=== PATIENT | female | born 1965 | race Caucasian/White ===

== ENCOUNTER → 2017-03-23 | Outpatient (CLI) | payer OTHER ==
[~2017-03-23] MED LIST: DAILY VALUE1 EACH; FLEXERIL10 MG PO; FLONASE16 GM NS; GILTUSS TR TAB1 EACH PO; OMEPRAZOLE20 M1; VOLTAREM 50MG PO; ZYRTEC10 MG PO
== END | disposition home or self-care (01) ==
LOC: NUCLEAR 07:29
DX: I73.9 Peripheral vascular disease, unspecified (principal)

== ENCOUNTER 2017-06-11 08:11 | Outpatient (CLI) | payer OTHER | END 2017-06-11 08:20 | disposition home or self-care (01) | LOC: LAB 08:11 | DX: N39.0 Urinary tract infection, site not specified (principal); N39.9 Disorder of urinary system, unspecified ==

== ENCOUNTER 2018-03-17 07:48 | Outpatient (CLI) | payer OTHER | END 2018-03-17 11:39 | disposition home or self-care (01) | LOC: LAB 07:48 | DX: E03.8 Other specified hypothyroidism (principal); E78.3 Hyperchylomicronemia; N95.0 Postmenopausal bleeding ==

== ENCOUNTER 2018-03-24 08:47 | Outpatient (CLI) | payer OTHER | END 2018-03-24 08:50 | disposition home or self-care (01) | LOC: MAMO-SONO 08:47 | DX: N60.11 Diffuse cystic mastopathy of right breast (principal); N60.12 Diffuse cystic mastopathy of left breast; Z12.31 Encounter for screening mammogram for malignant neoplasm of breast ==

== ENCOUNTER → 2018-09-14 07:02 | Outpatient (CLI) | payer OTHER | END | disposition home or self-care (01) | LOC: LAB 07:02 | DX: E78.89 Other lipoprotein metabolism disorders (principal); I87.2 Venous insufficiency (chronic) (peripheral); I83.813 Varicose veins of bilateral lower extremities with pain ==

== ENCOUNTER 2019-05-09 10:27 | Outpatient (CLI) | payer OTHER | END 2019-05-09 10:30 | disposition home or self-care (01) | LOC: RAD 10:27 | DX: M54.2 Cervicalgia (principal) ==

== ENCOUNTER → 2019-10-22 | Outpatient (CLI) | payer OTHER | END | disposition home or self-care (01) | LOC: MAMO-SONO 07:37 | PROVIDERS: ATTEND Specialist | DX: Z12.31 Encounter for screening mammogram for malignant neoplasm of breast (principal); N60.11 Diffuse cystic mastopathy of right breast; N60.12 Diffuse cystic mastopathy of left breast ==

== ENCOUNTER → 2021-10-29 | Emergency (ER) | payer OTHER ==
[~2021-10-29] VITALS: Ht 182.9 cm; Wt 101.6 kg
== END | disposition home or self-care (01) ==
LOC: ER 06:55
DX: R07.89 Other chest pain (principal); I10 Essential (primary) hypertension; Z20.822 Contact with and (suspected) exposure to COVID-19

== ENCOUNTER 2021-12-18 06:58 | Outpatient (CLI) | payer OTHER | END 2021-12-18 06:59 | disposition home or self-care (01) | LOC: LAB 06:58 | DX: R07.2 Precordial pain (principal); E78.5 Hyperlipidemia, unspecified; Z13.6 Encounter for screening for cardiovascular disorders ==

== ENCOUNTER 2022-01-01 10:48 | Outpatient (CLI) | payer OTHER | END 2022-01-01 10:50 | disposition home or self-care (01) | LOC: PPH VACUNA 10:48 | PROVIDERS: ATTEND Emergency Medicine Pediatric Emergency Medicine | DX: Z23 Encounter for immunization (principal) ==

== ENCOUNTER 2022-07-13 07:23 | Outpatient (CLI) | payer OTHER | END 2022-07-13 07:27 | disposition home or self-care (01) | LOC: LAB 07:23 | PROVIDERS: ATTEND General Practice | DX: E78.5 Hyperlipidemia, unspecified (principal); E55.9 Vitamin D deficiency, unspecified; N39.0 Urinary tract infection, site not specified; R10.9 Unspecified abdominal pain; R42 Dizziness and giddiness; Z00.00 Encounter for general adult medical examination without abnormal findings ==

== ENCOUNTER 2022-09-27 08:15 | Outpatient (CLI) | payer OTHER | END 2022-09-27 08:17 | disposition home or self-care (01) | LOC: RAD 08:15 | PROVIDERS: ATTEND Orthopaedic Surgery | DX: M65.812 Other synovitis and tenosynovitis, left shoulder (principal); M25.462 Effusion, left knee ==

== ENCOUNTER 2023-04-12 10:21 | Outpatient (CLI) | payer OTHER ==
[2023-04-13] MEDS ORDERED: TUSNEL LIQUID178 ML PO (15:40)
[2023-04-13] MEDS ORDERED: ZITHROMAX500 MG PO (15:40)
[2023-04-13] MEDS ORDERED: XOPENEX CO1.25 MG/0. IH (15:40)
== END 2023-04-12 10:24 | disposition home or self-care (01) ==
LOC: SONOGRAMA 10:21 → RAD 10:21 → SONOGRAMA 10:24
PROVIDERS: ATTEND Internal Medicine
DX: I87.2 Venous insufficiency (chronic) (peripheral) (principal); I83.813 Varicose veins of bilateral lower extremities with pain; E78.9 Disorder of lipoprotein metabolism, unspecified; K21.9 Gastro-esophageal reflux disease without esophagitis; M23.52 Chronic instability of knee, left knee; M23.92 Unspecified internal derangement of left knee

== ENCOUNTER 2023-04-13 12:52 | Emergency (ER) | payer OTHER ==
[~2023-04-13] VITALS: Ht 177.8 cm; Wt 72.6 kg
[2023-04-13] MEDS ORDERED: XOPENEX CO1.25 MG/0. IH (15:40)
[2023-04-13] MEDS ORDERED: TUSNEL LIQUID178 ML PO (15:40)
[2023-04-13] MEDS ORDERED: ZITHROMAX500 MG PO (15:40)
== END 2023-04-13 16:01 | disposition home or self-care (01) ==
LOC: ER 12:52
DX: J06.9 Acute upper respiratory infection, unspecified (principal)

== ENCOUNTER → 2023-05-05 | Outpatient (CLI) | payer OTHER ==
[~2023-05-05] MED LIST changes: +TUSNEL LIQUID178 ML PO; +XOPENEX CO1.25 MG/0. IH; +ZITHROMAX500 MG PO
== END | disposition home or self-care (01) ==
LOC: MRI 13:39
PROVIDERS: ATTEND Orthopaedic Surgery
DX: M25.562 Pain in left knee (principal); M23.92 Unspecified internal derangement of left knee
CPT/HCPCS: 73721

== ENCOUNTER 2023-05-13 12:07 | Outpatient (CLI) | payer OTHER | END 2023-05-13 12:09 | disposition home or self-care (01) | LOC: NUCLEAR 12:07 | PROVIDERS: ATTEND Orthopaedic Surgery | DX: M81.0 Age-related osteoporosis without current pathological fracture (principal) ==

== ENCOUNTER 2023-07-04 07:38 | Outpatient (CLI) | payer OTHER ==
[2023-07-04 08:59] LABS: PH,URINE 5.5 (5.0-8.0); URINE APPEARANCE Clear; URINE BILIRRUBIN Negative (NEGATIVE); URINE BLOOD Negative; URINE COLOR Yellow; URINE GLUCOSE Negative (NEGATIVE); URINE LEUKOCYTE Trace; URINE NITRATE Negative; URINE PROTEIN Negative (NEGATIVE); URINE UROBILINOGEN 0.2 E.U./dl
[2023-07-04 09:00] LABS: HEMATOCRIT 34.7 % (36.0-45.00); HEMOGLOBIN 11.7 g/dL (12.0-15.00); MEAN CELL VOLUME 87.3 fL (80.00-100.00); MEAN CORPUSCULAR HEMOGLOBIN 29.5 pg (27.00-32.0); MEAN CORPUSCULAR HGB CONC 33.8 g/dl (32.0-36.0); PLATELET COUNT 225 K/uL (150-450); RED BLOOD COUNT 3.98 M/uL (4.00-6.00)
[2023-07-04 09:01] LABS: URINE BACTERIA 108.3 uL (0.0-1933); URINE EPITHELIAL CELLS 10.1 uL (0.0-38.8); URINE WBC 19.6 uL (0.0-23.2)
[2023-07-04 10:14] LABS: ALBUMIN 3.5 gm/dL (3.4-5.0); BILIRUBIN TOTAL 0.38 mg/dL (0.3-1.2); CHOL HDL RATIO 3.3 (0-5.0); CREATININE SERUM 0.74 mg/dL (0.55-1.02); GFR 80.89; GLOBULINA 3.6 G/DL (2.4-3.5); POTASSIUM 4.64 mEq/L (3.5-5.1); T4 TOTAL 8.08 UG/DL (4.8-13.9); TOTAL PROTEIN 7.1 gm/dL (6.4-8.2); TSH 0.656 uIU/mL (0.358-3.74)
[2023-07-04 10:15] LABS: ob NEGATIVE (NEGATIVE)
== END 2023-07-04 14:30 | disposition home or self-care (01) ==
LOC: LAB 07:38
PROVIDERS: ATTEND Internal Medicine
DX: I87.2 Venous insufficiency (chronic) (peripheral) (principal); I83.813 Varicose veins of bilateral lower extremities with pain; E78.9 Disorder of lipoprotein metabolism, unspecified; K21.9 Gastro-esophageal reflux disease without esophagitis; M23.52 Chronic instability of knee, left knee; M23.92 Unspecified internal derangement of left knee

== ENCOUNTER → 2024-01-19 07:27 | Outpatient (CLI) | payer OTHER ==
[2024-01-19 08:36] LABS: URINE APPEARANCE Clear; URINE BILIRRUBIN Negative (NEGATIVE); URINE BLOOD Negative; URINE COLOR Yellow; URINE GLUCOSE Negative (NEGATIVE); URINE KETONE Negative (NEGATIVE); URINE LEUKOCYTE Small; URINE NITRATE Negative; URINE PROTEIN Negative (NEGATIVE); URINE UROBILINOGEN 0.2 E.U./dl
[2024-01-19 08:37] LABS: HEMATOCRIT 33.4 % (36.0-45.00); HEMOGLOBIN 11.5 g/dL (12.0-15.00); MEAN CELL VOLUME 87.3 fL (80.00-100.00); MEAN CORPUSCULAR HEMOGLOBIN 30.1 pg (27.00-32.0); MEAN CORPUSCULAR HGB CONC 34.5 g/dl (32.0-36.0); PLATELET COUNT 230 K/uL (150-450); RED BLOOD COUNT 3.83 M/uL (4.00-6.00); RED CELL DISTRIBUTION WIDTH 13.9 % (11.5-14.5)
[2024-01-19 08:41] LABS: URINE BACTERIA 36.5 uL (0.0-1933); URINE EPITHELIAL CELLS 5.6 uL (0.0-38.8); URINE RBC 1.8 uL (0.0-20.8)
[2024-01-19 09:22] LABS: ALBUMIN 3.6 gm/dL (3.4-5.0); BILIRUBIN TOTAL 0.31 mg/dL (0.3-1.2); CALCIUM 9.1 mg/dL (8.5-10.1); CHOL HDL RATIO 3.2 (0-5.0); CREATININE SERUM 0.94 mg/dL (0.55-1.02); GFR 61.16; GLOBULINA 3.7 G/DL (2.4-3.5); POTASSIUM 4.02 mEq/L (3.5-5.1); T4 TOTAL 8.62 UG/DL (4.8-13.9); TOTAL PROTEIN 7.3 gm/dL (6.4-8.2); TSH 1.07 uIU/mL (0.358-3.74)
[2024-01-19 10:16] LABS: T3 TOTAL 1.03 ng/ml (0.846-2.02); VITAMIN D3 25 HYDROXY 49.77 ng/ml (30-120)
== END | disposition home or self-care (01) ==
LOC: LAB 07:27
PROVIDERS: ATTEND Internal Medicine
DX: I87.2 Venous insufficiency (chronic) (peripheral) (principal); I83.813 Varicose veins of bilateral lower extremities with pain; E78.9 Disorder of lipoprotein metabolism, unspecified; K21.9 Gastro-esophageal reflux disease without esophagitis; M23.52 Chronic instability of knee, left knee; M23.92 Unspecified internal derangement of left knee; E03.9 Hypothyroidism, unspecified

== ENCOUNTER 2024-02-13 11:00 | Outpatient (CLI) | payer OTHER | END 2024-02-13 11:10 | disposition home or self-care (01) | LOC: PPH VACUNA 11:00 | PROVIDERS: ATTEND Emergency Medicine Pediatric Emergency Medicine | DX: Z23 Encounter for immunization (principal) ==

== ENCOUNTER → 2024-04-27 08:13 | Outpatient (CLI) | payer OTHER ==
[2024-04-27 08:51] LABS: URINE APPEARANCE Clear; URINE BILIRRUBIN Negative (NEGATIVE); URINE BLOOD Negative; URINE COLOR Yellow; URINE GLUCOSE Negative (NEGATIVE); URINE KETONE Negative (NEGATIVE); URINE LEUKOCYTE Trace; URINE NITRATE Negative; URINE PROTEIN Negative (NEGATIVE); URINE UROBILINOGEN 0.2 E.U./dl
[2024-04-27 08:52] LABS: HEMATOCRIT 34.3 % (36.0-45.00); HEMOGLOBIN 11.8 g/dL (12.0-15.00); MEAN CORPUSCULAR HEMOGLOBIN 29.8 pg (27.00-32.0); MEAN CORPUSCULAR HGB CONC 34.3 g/dl (32.0-36.0); PLATELET COUNT 222 K/uL (150-450); RED BLOOD COUNT 3.94 M/uL (4.00-6.00)
[2024-04-27 09:03] LABS: URINE BACTERIA 51.3 uL (0.0-1933); URINE EPITHELIAL CELLS 4.4 uL (0.0-38.8); URINE WBC 11.5 uL (0.0-23.2)
[2024-04-27 09:26] LABS: URINE RBC 0.7 uL (0.0-20.8)
[2024-04-27 10:19] LABS: ALBUMIN 3.5 gm/dL (3.4-5.0); BILIRUBIN TOTAL 0.49 mg/dL (0.3-1.2); CALCIUM 9.5 mg/dL (8.5-10.1); CHOL HDL RATIO 2.8 (0-5.0); CREATININE SERUM 0.76 mg/dL (0.55-1.02); GFR 78.16; GLOBULINA 3.7 G/DL (2.4-3.5); POTASSIUM 4.46 mEq/L (3.5-5.1); TOTAL PROTEIN 7.2 gm/dL (6.4-8.2)
== END | disposition home or self-care (01) ==
LOC: LAB 08:13
PROVIDERS: ATTEND Internal Medicine
DX: I87.2 Venous insufficiency (chronic) (peripheral) (principal); I83.813 Varicose veins of bilateral lower extremities with pain; E78.9 Disorder of lipoprotein metabolism, unspecified; K21.9 Gastro-esophageal reflux disease without esophagitis; M23.52 Chronic instability of knee, left knee; M23.92 Unspecified internal derangement of left knee; E03.9 Hypothyroidism, unspecified

== ENCOUNTER 2024-08-27 14:20 | Outpatient (CLI) | payer OTHER ==
[2024-08-29 05:07] LABS: HEPATITIS A ANTIBODY IGG Positive (Negative); HEPATITIS B SURFACE ANTIBODY Non Reactive (.); HEPATITIS C VIRUS ANTIBODY Non Reactive (Non Reactive)
== END 2024-08-27 14:36 | disposition home or self-care (01) ==
LOC: LAB 14:20
DX: A64 Unspecified sexually transmitted disease (principal); B19.9 Unspecified viral hepatitis without hepatic coma

== ENCOUNTER 2024-09-20 12:56 | Outpatient (CLI) | payer OTHER ==
[2024-09-20 13:53] LABS: COVID-19 AG NEGATIVE (NEGATIVE); INFLUENZA A AG NEGATIVE (NEGATIVE); INFLUENZA B AG NEGATIVE (NEGATIVE)
== END 2024-09-20 12:59 | disposition home or self-care (01) ==
LOC: LAB 12:56
DX: J11.1 Influenza due to unidentified influenza virus with other respiratory manifestations (principal); Z20.828 Contact with and (suspected) exposure to other viral communicable diseases

== ENCOUNTER 2025-01-31 13:35 | Outpatient (CLI) | payer OTHER | END 2025-01-31 13:45 | disposition home or self-care (01) | LOC: PPH VACUNA 13:35 | PROVIDERS: ATTEND Emergency Medicine Pediatric Emergency Medicine | DX: Z23 Encounter for immunization (principal) ==

== ENCOUNTER 2025-02-13 13:56 | Outpatient (CLI) | payer OTHER ==
[2025-02-13 15:01] LABS: COVID-19 AG NEGATIVE (NEGATIVE)
== END 2025-02-13 14:01 | disposition home or self-care (01) ==
LOC: LAB 13:56
PROVIDERS: ATTEND Preventive Medicine Occupational Medicine
DX: J11.1 Influenza due to unidentified influenza virus with other respiratory manifestations (principal); Z20.828 Contact with and (suspected) exposure to other viral communicable diseases

== ENCOUNTER → 2025-02-25 07:33 | Outpatient (CLI) | payer OTHER ==
[2025-02-25 08:47] LABS: BASO % 0.7 % (0.1-1.2); EOS # 0.08 (0.04-0.54); EOS % 1.4 % (0.7-7.0); LYMPH # 1.02 (1.18-3.74); LYMPH % 18.0 % (19.3-53.1); MEAN PLATELET VOLUME 9.80 fl (9.4-12.4); MONO # 0.33 (0.24-0.82); MONO % 5.8 % (4.7-12.5); NEUT # 4.17 (1.56-6.13); NEUT % 73.7 % (34.0-71.1); RED CELL DISTRIBUTION WIDTH 13.5 % (11.6-14.4)
[2025-02-25 08:48] LABS: URINE APPEARANCE Clear; URINE BILIRRUBIN Negative (NEGATIVE); URINE BLOOD Negative; URINE COLOR Yellow; URINE GLUCOSE Negative (NEGATIVE); URINE KETONE Negative (NEGATIVE); URINE LEUKOCYTE Trace; URINE NITRATE Negative; URINE PROTEIN Negative (NEGATIVE); URINE UROBILINOGEN 0.2 E.U./dl
[2025-02-25 08:54] LABS: URINE BACTERIA 207.6 uL (0.0-1933); URINE EPITHELIAL CELLS 12.3 uL (0.0-38.8); URINE WBC 22.2 uL (0.0-23.2)
[2025-02-25 09:02] LABS: URINE CAST 0.00 uL (0.0-1.40); URINE RBC 1.7 uL (0.0-20.8)
[2025-02-25 09:54] LABS: ALT/SGPT 26.0 U/L (12-78); AST/SGOT 19.0 U/L (15-37); BILIRUBIN TOTAL 0.42 mg/dL (0.3-1.2); BUN CREA RATIO 16.0 (7.0-25.0); CHOL HDL RATIO 3.5 (0-5.0); CREATININE SERUM 0.86 mg/dL (0.55-1.02); GFR 67.54; GLOBULINA 3.9 G/DL (2.4-3.5); GLUCOSE FASTING 101.0 mg/dL (65-100); HDL 64.0 mg/dl (40-60); LDL 137.0 mg/dl (0-130); OSMOLALITY SERUM 287.0 MOSM/KG (275-295); T3 UPTAKE 37.0 % (30-39); T4 TOTAL 7.74 UG/DL (4.8-13.9); TSH 0.951 uIU/mL (0.358-3.74); VLDL 25.0 (0-39)
== END | disposition home or self-care (01) ==
LOC: LAB 07:33
PROVIDERS: ATTEND Internal Medicine
DX: I87.2 Venous insufficiency (chronic) (peripheral) (principal); I83.813 Varicose veins of bilateral lower extremities with pain; E78.9 Disorder of lipoprotein metabolism, unspecified; K21.9 Gastro-esophageal reflux disease without esophagitis; M23.52 Chronic instability of knee, left knee; M23.92 Unspecified internal derangement of left knee; E03.9 Hypothyroidism, unspecified

== ENCOUNTER 2025-03-19 06:00 | Day surgery (SDC) | payer OTHER ==
[2025-03-19] MEDS ORDERED: DIPHENHYDRAMINE HCL 50 MG/ML VIAL 1ML IV ONE (13:30)
[2025-03-19] MEDS ORDERED: fentaNYL CITRATE 50 MCG/ML AMPUL IV ONE (13:30)
[2025-03-19] MEDS ORDERED: MIDAZOLAM HCL 2 MG/2 ML VIAL IV ONE (13:30)
== END 2025-03-19 15:00 | disposition home or self-care (01) ==
LOC: AMB-ENDOS 06:00
PROVIDERS: ATTEND Internal Medicine Gastroenterology
DX: D12.3 Benign neoplasm of transverse colon (principal); D12.2 Benign neoplasm of ascending colon; K63.5 Polyp of colon; K57.30 Diverticulosis of large intestine without perforation or abscess without bleeding; K58.9 Irritable bowel syndrome, unspecified